=== PATIENT | male | born 1980 | race Two or more races ===

== ENCOUNTER 2017-10-14 07:12 | Day surgery (SDC) | payer BC ==
[2017-10-11 10:52] VITALS: BMI 19.6
[2017-10-14] MEDS ORDERED: PROPOFOL 20 ML ONE ×2 (07:15→07:28)
[2017-10-14] MEDS ORDERED: LIDOCAINE HCL/PF 2% SDV 5ML VIAL ONE (07:23)
[2017-10-14 08:46] VITALS: TEMP 98.2
[2017-10-14 09:08] VITALS: BP 103/66; PULSE 62
--- NOTE | 2017-10-15 14:26 | PATH ---
Surgical Pathology Report Patient Name: CHAI KAN [facility]. Rec. #: [id number] /Age/Gender: 1980 (Age: 37) / M Account: [id number] Location: Taken: 10/14/2017 Received: 10/14/2017 Reported: 10/15/2017 Physicians: Christopher Buck M.D. Specimen(s) Received A: BX DUODENUM B: BX ANTRUM Clinical History GERD Postoperative diagnosis: Rule out celiac disease, mild gastritis, rule out H. Pylori Final Diagnosis A. DUODENUM, BIOPSY: DUODENAL MUCOSA WITH NO PATHOLOGIC FINDINGS. Note: Features suggestive of celiac disease are not identified in this biopsy. B. ANTRUM, BIOPSY: SEVERE CHRONIC GASTRITIS, MILDLY ACTIVE WITH INTESTINAL METAPLASIA. IMMUNOSTAIN SHOWS NUMEROUS H. PYLORI ORGANISMS. Electronically Signed Delicia Garcia M.D. Gross Description A. Received in formalin, labeled "duodenum" are 3 sanders, irregular portions of soft tissue ranging from 0.3-0.8 cm. in greatest dimension. The specimens are submitted in toto in one cassette. B. Received in formalin, labeled "antrum" are 6 sanders, irregular portions of soft tissue ranging from 0.2-0.5 cm. in greatest dimension. The specimens are submitted in toto in one cassette. 10/14/2017 [facility]10/14/2017
== END 2017-10-14 09:08 | disposition home or self-care (01) ==
LOC: FASU-ENDO 07:12
PROVIDERS: ATTEND Internal Medicine Gastroenterology
PROC: 0DB98ZX Excision of Duodenum, Via Natural or Artificial Opening Endoscopic, Diagnostic (ICD-10-PCS; principal; 2017-10-14 08:22)
PROC: 0DB68ZX Excision of Stomach, Via Natural or Artificial Opening Endoscopic, Diagnostic (ICD-10-PCS; 2017-10-14 08:22)
DX: K29.50 Unspecified chronic gastritis without bleeding (principal); B96.81 Helicobacter pylori [H. pylori] as the cause of diseases classified elsewhere; R10.13 Epigastric pain; R63.4 Abnormal weight loss
CPT/HCPCS: 88305-TC; 88342-TC

== ENCOUNTER 2021-05-01 08:11 | Emergency (ER) | payer BC, OTHER ==
[2021-05-01 08:31] VITALS: BP 138/76; PULSE 89; TEMP 98.1; BMI 22.8
== END 2021-05-01 10:44 | disposition home or self-care (01) ==
LOC: FER 08:11
DX: R51.9 Headache, unspecified (principal)
CPT/HCPCS: 70450-TC; 70486-TC; 99284-25

== ENCOUNTER 2022-09-04 21:20 | Emergency (ER) | payer BC, OTHER ==
[2022-09-04 21:33] VITALS: BP 115/75; PULSE 52; RESP 18; TEMP 97.8; BMI 21.0
== END 2022-09-04 22:56 | disposition home or self-care (01) ==
LOC: FER 21:20
PROC: 0HQ1XZZ Repair Face Skin, External Approach (ICD-10-PCS; principal; 2022-09-04)
DX: S01.21XA Laceration without foreign body of nose, initial encounter (principal); S02.2XXA Fracture of nasal bones, initial encounter for closed fracture; R51.9 Headache, unspecified; W22.09XA Striking against other stationary object, initial encounter; Y99.0 Civilian activity done for income or pay
CPT/HCPCS: 70160-TC-FY; 99283-25